=== PATIENT | female | born 1985 | race Caucasian/White ===

== ENCOUNTER 2018-08-01 16:57 | Emergency (ER) | payer OTHER ==
[2018-08-01] MEDS ORDERED: IBUPROFEN 800 MG TABLET PO ONE (18:57)
[2018-08-01] MEDS ORDERED: HYDROCODONE/ACETAMINOPHEN 5-325 MG TABLET PO ONE (18:57)
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
[2018-08-02 02:32] VITALS: BP 125/85
== END 2018-08-01 20:21 | disposition home or self-care (01) ==
LOC: ER 16:57
DX: M62.830 Muscle spasm of back (principal); M54.6 Pain in thoracic spine; M54.2 Cervicalgia; F17.200 Nicotine dependence, unspecified, uncomplicated; V89.2XXA Person injured in unspecified motor-vehicle accident, traffic, initial encounter; Z98.51 Tubal ligation status
CPT/HCPCS: 72050; 72070; 99283